=== PATIENT | male | born 1970 | race Caucasian/White ===

== ENCOUNTER 2021-10-08 14:06 | Inpatient (IN) | payer OTHER ==
[2021-10-08] MEDS ORDERED: cloNIDine HCL 0.1 MG TABLET PO PRN (15:26)
[2021-10-08] MEDS ORDERED: LOPERAMIDE HCL 2 MG CAPSULE PO PRN (15:26)
[2021-10-08] MEDS ORDERED: IBUPROFEN 400 MG TABLET (FP) PO PRN (15:26)
[2021-10-08] MEDS ORDERED: BISMUTH SUBSALICYLATE 262 MG/15 ML BTL PO PRN (15:26)
[2021-10-08] MEDS ORDERED: MAGNESIUM CITRATE 300 ML BOTTLE PO PRN (15:26)
[2021-10-08] MEDS ORDERED: NALOXONE HCL (KLOXXADO) 8 MG SPRAY NS PRN (15:26)
[2021-10-08] MEDS ORDERED: BENZOCAINE/MENTHOL (CHLORASEPTIC ) LOZENGE MM PRN (15:26)
[2021-10-08] MEDS ORDERED: MAGNESIUM HYDROX 2400MG/30ML ORAL SUSPENSION 30 ML CUP PO PRN (15:26)
[2021-10-08] MEDS ORDERED: MAG HYDROX/AL HYDROX/SIMETH 30 ML UNIT-DOSE CUP PO PRN (15:26)
[2021-10-08] MEDS ORDERED: ACETAMINOPHEN 325 MG TABLET (FP) PO PRN ×2 (15:26)
[2021-10-08] MEDS ORDERED: ONDANSETRON *ODT* 4 MG TABLET SL PRN (15:26)
[2021-10-08] MEDS ORDERED: chlordiazePOXIDE HCL 25 MG CAPSULE PO PRN (15:26)
[2021-10-08] MEDS ORDERED: NICOTINE 10 MG CARTRIDGE (INHALER) IH PRN (15:26)
[2021-10-08] MEDS ORDERED: DICYCLOMINE HCL 10 MG CAPSULE PO PRN (15:26)
[2021-10-08] MEDS ORDERED: methaDONE HCL 10 MG TABLET (FOR DETOX USE ONLY) PO ONE (15:26)
[2021-10-08 15:56] VITALS: BMI 22.8
[2021-10-08] MEDS: hydrOXYzine PAMOATE 25 MG CAPSULE (FP) PO SCH ×2 (17:53→23:39)
[2021-10-08] MEDS: PRENATAL VITAMINS W/ FOLIC ACID TABLET (FP) PO SCH (17:59)
[2021-10-08] MEDS: NICOTINE 14 MG/24 HOURS TOPICAL PATCH TD SCH (17:59)
[2021-10-08] MEDS: chlordiazePOXIDE HCL 25 MG CAPSULE PO SCH (23:39)
[2021-10-08] MEDS: THIAMINE HCL 100 MG TABLET (FP) PO SCH (23:39)
[2021-10-08] MEDS: BUDESONIDE/FORMETEROL FUMARATE 80/4.5 mcg INHALER IH SCH (23:40)
[2021-10-08] MEDS: MELATONIN 5 MG TABLETS PO SCH (23:41)
[2021-10-09] MEDS: hydrOXYzine PAMOATE 25 MG CAPSULE (FP) PO SCH ×5 (05:59→22:22)
[2021-10-09] MEDS: chlordiazePOXIDE HCL 25 MG CAPSULE PO SCH ×4 (06:00→22:22)
[2021-10-09] MEDS ORDERED: methaDONE HCL 10 MG TABLET (FOR DETOX USE ONLY) ONE (09:47)
[2021-10-09] MEDS: NICOTINE 14 MG/24 HOURS TOPICAL PATCH TD SCH (10:07)
[2021-10-09] MEDS: METHOCARBAMOL 500 MG TABLET PO PRN (10:09)
[2021-10-09] MEDS: PRENATAL VITAMINS W/ FOLIC ACID TABLET (FP) PO SCH (10:09)
[2021-10-09] MEDS: BUDESONIDE/FORMETEROL FUMARATE 80/4.5 mcg INHALER IH SCH ×2 (10:11→22:21)
[2021-10-09 10:56] LABS: HEMOGLOBIN 12.9 GM/dL (11.7-16.9); MCH 30.8 pg (25.7-33.7); MEAN CELL VOLUME 93.3 fl (80-96); MEAN PLT VOLUME 8.5 fl (7.5-11.1); PLATELET COUNT 181 10^3/uL (134-434); RBC 4.18 M/mm3 (4.00-5.60); RDW 13.4 % (11.9-15.9); WHITE BLOOD COUNT 3.9 K/mm3 (4.0-10.0)
[2021-10-09 11:15] LABS: CALCIUM 8.5 mg/dL (8.5-10.1)
[2021-10-09 11:16] LABS: ALBUMIN 2.7 g/dl (3.4-5.0); BLOOD UREA NITROGEN 11.3 mg/dL (7-18)
[2021-10-09 11:18] LABS: CREATININE 0.7 mg/dL (0.55-1.3)
[2021-10-09 11:20] LABS: TOT PROT 5.8 g/dl (6.4-8.2)
[2021-10-09 11:22] LABS: BILIRUBIN,TOTAL 1.6 mg/dL (0.2-1)
[2021-10-09] MEDS: MELATONIN 5 MG TABLETS PO SCH (22:21)
[2021-10-09] MEDS: THIAMINE HCL 100 MG TABLET (FP) PO SCH (22:22)
[2021-10-10] MEDS: chlordiazePOXIDE HCL 25 MG CAPSULE PO SCH ×4 (06:38→22:23)
[2021-10-10] MEDS: hydrOXYzine PAMOATE 25 MG CAPSULE (FP) PO SCH ×5 (06:39→22:22)
[2021-10-10] MEDS ORDERED: methaDONE HCL 10 MG TABLET (FOR DETOX USE ONLY) PO ONE (10:00)
[2021-10-10] MEDS: METHOCARBAMOL 500 MG TABLET PO PRN (10:15)
[2021-10-10] MEDS: PRENATAL VITAMINS W/ FOLIC ACID TABLET (FP) PO SCH (10:16)
[2021-10-10] MEDS: NICOTINE 14 MG/24 HOURS TOPICAL PATCH TD SCH (10:16)
[2021-10-10] MEDS: BUDESONIDE/FORMETEROL FUMARATE 80/4.5 mcg INHALER IH SCH ×2 (10:17→22:22)
[2021-10-10] MEDS: MELATONIN 5 MG TABLETS PO SCH (22:22)
[2021-10-10] MEDS: THIAMINE HCL 100 MG TABLET (FP) PO SCH (22:22)
[2021-10-11] MEDS ORDERED: chlordiazePOXIDE HCL 10 MG CAPSULE PO PRN
[2021-10-11] MEDS: METHOCARBAMOL 500 MG TABLET PO PRN (03:52)
[2021-10-11] MEDS: chlordiazePOXIDE HCL 10 MG CAPSULE PO SCH ×2 (06:41→10:26)
[2021-10-11] MEDS: hydrOXYzine PAMOATE 25 MG CAPSULE (FP) PO SCH ×2 (06:41→10:26)
[2021-10-11 08:53] VITALS: BP 121/75; PULSE 64; TEMP 97.1
[2021-10-11] MEDS: PRENATAL VITAMINS W/ FOLIC ACID TABLET (FP) PO SCH (10:25)
[2021-10-11] MEDS: NICOTINE 14 MG/24 HOURS TOPICAL PATCH TD SCH (10:25)
[2021-10-11] MEDS: BUDESONIDE/FORMETEROL FUMARATE 80/4.5 mcg INHALER IH SCH (10:26)
[2021-10-12] MEDS ORDERED: chlordiazePOXIDE HCL 10 MG CAPSULE PO SCH (05:00)
[2021-10-12] MEDS ORDERED: methaDONE HCL 10 MG TABLET (FOR DETOX USE ONLY) PO ONE (10:00)
[2021-10-13] MEDS ORDERED: chlordiazePOXIDE HCL 10 MG CAPSULE PO ONE (05:00)
== END 2021-10-11 09:06 | disposition left against medical advice (07) | DRG 770 ==
LOC: YASAS 14:06 → Y3N 16:20
PROVIDERS: ADMIT Allergy & Immunology; ATTEND Surgery
PROC: HZ2ZZZZ Detoxification Services for Substance Abuse Treatment (ICD-10-PCS; principal; 2021-10-08)
DX: F11.23 Opioid dependence with withdrawal (principal); F10.230 Alcohol dependence with withdrawal, uncomplicated; F14.20 Cocaine dependence, uncomplicated; F17.210 Nicotine dependence, cigarettes, uncomplicated; F31.9 Bipolar disorder, unspecified; F20.9 Schizophrenia, unspecified; J44.9 Chronic obstructive pulmonary disease, unspecified
CPT/HCPCS: 36415; 80053; 85027; 86780; C9803-CS; U0003; U0005

== ENCOUNTER 2022-09-12 15:41 | Inpatient (IN) | payer OTHER ==
[2022-09-12 16:05] VITALS: BMI 22.1
[2022-09-12] MEDS ORDERED: ALBUTEROL SO4 2.5/IPRATROPIUM 0.5 INH SOL 3 ML VIAL.NEB. NEB PRN (16:53)
[2022-09-12] MEDS ORDERED: ONDANSETRON *ODT* 4 MG TABLET SL PRN (16:54)
[2022-09-12] MEDS ORDERED: POLYETHYLENE GLYCOL (HEALTHYLAX) 3350 17 GM PACKET PO PRN (16:54)
[2022-09-12] MEDS ORDERED: BISMUTH SUBSALICYLATE 524 MG/30 ML PO PRN (16:54)
[2022-09-12] MEDS ORDERED: MAGNESIUM HYDROX 2400MG/30ML ORAL SUSPENSION 30 ML CUP PO PRN (16:54)
[2022-09-12] MEDS ORDERED: LOPERAMIDE HCL 2 MG CAPSULE PO PRN (16:54)
[2022-09-12] MEDS ORDERED: ACETAMINOPHEN 325 MG TABLET (FP) PO PRN ×2 (16:54)
[2022-09-12] MEDS ORDERED: MAG HYDROX/AL HYDROX/SIMETH 30 ML UNIT-DOSE CUP PO PRN (16:54)
[2022-09-12] MEDS ORDERED: NALOXONE HCL 0.4 MG/ML VIAL IM PRN (16:54)
[2022-09-12] MEDS ORDERED: IBUPROFEN 600 MG TABLET (FP) PO PRN (16:54)
[2022-09-12] MEDS ORDERED: NICOTINE POLACRILEX 2 MG GUM BUC PRN (16:54)
[2022-09-12] MEDS ORDERED: guaiFENesin 600 MG TABLET.ER (FP) PO PRN (16:54)
[2022-09-12] MEDS ORDERED: NALOXONE HCL (KLOXXADO) 8 MG SPRAY NS PRN (16:54)
[2022-09-12] MEDS ORDERED: IBUPROFEN 400 MG TABLET (FP) PO PRN (16:54)
[2022-09-12] MEDS ORDERED: BENZONATATE 200 MG CAPSULE PO PRN (16:54)
[2022-09-12] MEDS ORDERED: P-EPHED 60MG/TRIPROLIDI 2.5MG TABLET PO PRN (16:54)
[2022-09-12] MEDS ORDERED: DICYCLOMINE HCL 10 MG CAPSULE PO PRN (16:54)
[2022-09-12] MEDS ORDERED: BENZOCAINE/MENTHOL (CHLORASEPTIC ) LOZENGE MM PRN (16:54)
[2022-09-12] MEDS: hydrOXYzine PAMOATE 25 MG CAPSULE (FP) PO PRN (18:44)
[2022-09-12] MEDS: MELATONIN 5 MG TABLETS PO SCH (22:59)
[2022-09-12] MEDS: THIAMINE HCL 100 MG TABLET (FP) PO SCH (22:59)
[2022-09-13] MEDS ORDERED: ALBUTEROL SO4 HFA INHALER IH PRN (06:36)
[2022-09-13] MEDS: PRENATAL VITAMINS W/ FOLIC ACID TABLET (FP) PO SCH (10:13)
[2022-09-13] MEDS: BUDESONIDE/FORMETEROL FUMARATE 80/4.5 mcg INHALER IH SCH (10:14)
[2022-09-13 12:23] LABS: HEMATOCRIT 40.6 % (35.4-49); HEMOGLOBIN 14.1 GM/dL (11.7-16.9); MCH 32.4 pg (25.7-33.7); MCHC 34.6 g/dl (32.0-35.9); MEAN CELL VOLUME 93.6 fl (80-96); MEAN PLT VOLUME 8.4 fl (7.5-11.1); PLATELET COUNT 169 10^3/uL (134-434); RBC 4.33 M/mm3 (4.00-5.60); RDW 13.6 % (11.9-15.9); WHITE BLOOD COUNT 5.3 K/mm3 (4.0-10.0)
[2022-09-13 12:27] LABS: ALBUMIN 2.8 g/dl (3.4-5.0)
[2022-09-13 12:28] LABS: BLOOD UREA NITROGEN 19.6 mg/dL (7-18)
[2022-09-13 12:30] LABS: CALCIUM 8.7 mg/dL (8.5-10.1)
[2022-09-13 12:31] LABS: CREATININE 0.7 mg/dL (0.55-1.3)
[2022-09-13 12:32] LABS: BILIRUBIN,TOTAL 0.2 mg/dL (0.2-1); TOT PROT 5.9 g/dl (6.4-8.2)
[2022-09-13] MEDS: hydrOXYzine PAMOATE 25 MG CAPSULE (FP) PO PRN (17:33)
[2022-09-13] MEDS: THIAMINE HCL 100 MG TABLET (FP) PO SCH (22:17)
[2022-09-13] MEDS: MELATONIN 5 MG TABLETS PO SCH (22:18)
[2022-09-14] MEDS ORDERED: methaDONE HCL 10 MG TABLET (FOR DETOX USE ONLY) PO ONE (09:17)
[2022-09-14] MEDS ORDERED: cloNIDine HCL 0.1 MG TABLET PO PRN (09:17)
[2022-09-14] MEDS ORDERED: diazePAM 5 MG TABLET PO PRN (09:18)
[2022-09-14] MEDS: PRENATAL VITAMINS W/ FOLIC ACID TABLET (FP) PO SCH (10:13)
[2022-09-14] MEDS: BUDESONIDE/FORMETEROL FUMARATE 80/4.5 mcg INHALER IH SCH (10:15)
[2022-09-14] MEDS: diazePAM 5 MG TABLET PO SCH ×3 (11:15→22:11)
[2022-09-14 21:11] VITALS: RESP 16
[2022-09-14] MEDS: THIAMINE HCL 100 MG TABLET (FP) PO SCH (22:10)
[2022-09-14] MEDS: MELATONIN 5 MG TABLETS PO SCH (22:10)
[2022-09-14] MEDS: hydrOXYzine PAMOATE 25 MG CAPSULE (FP) PO PRN (22:10)
[2022-09-15] MEDS: diazePAM 5 MG TABLET PO SCH (05:39)
[2022-09-15 06:36] VITALS: BP 140/89; PULSE 66; TEMP 97.7
[2022-09-16] MEDS ORDERED: diazePAM 5 MG TABLET PO SCH (06:00)
[2022-09-16] MEDS ORDERED: methaDONE HCL 10 MG TABLET (FOR DETOX USE ONLY) PO ONE (10:00)
[2022-09-17] MEDS ORDERED: diazePAM 5 MG TABLET PO SCH (06:00)
[2022-09-18] MEDS ORDERED: diazePAM 5 MG TABLET PO ONE (06:00)
[2022-09-18] MEDS ORDERED: methaDONE HCL 10 MG TABLET (FOR DETOX USE ONLY) PO ONE (10:00)
== END 2022-09-15 09:14 | disposition left against medical advice (07) | DRG 770 ==
LOC: YASAS 15:41 → UNDOADMIN 18:24 → Y3N 18:24 → UNDODISIN 09-15 09:14
PROVIDERS: ADMIT Allergy & Immunology; ATTEND Surgery
PROC: HZ2ZZZZ Detoxification Services for Substance Abuse Treatment (ICD-10-PCS; principal; 2022-09-12)
DX: F11.23 Opioid dependence with withdrawal (principal); F10.230 Alcohol dependence with withdrawal, uncomplicated; F14.20 Cocaine dependence, uncomplicated; F17.210 Nicotine dependence, cigarettes, uncomplicated; F31.9 Bipolar disorder, unspecified; F19.24 Other psychoactive substance dependence with psychoactive substance-induced mood disorder; J45.20 Mild intermittent asthma, uncomplicated; Z86.11 Personal history of tuberculosis; Z56.0 Unemployment, unspecified; Z59.00 Homelessness unspecified; Z91.199 Patient's noncompliance with other medical treatment and regimen due to unspecified reason
CPT/HCPCS: 36415; 80053; 85027; 86780; 87811; C9803-CS; U0003; U0005

== ENCOUNTER 2022-10-07 17:11 | Inpatient (IN) | payer OTHER ==
[2022-10-07 18:01] VITALS: BMI 22.3
[2022-10-07] MEDS ORDERED: ACETAMINOPHEN 325 MG TABLET (FP) PO PRN (19:47)
[2022-10-07] MEDS ORDERED: BENZOCAINE/MENTHOL (CHLORASEPTIC ) LOZENGE MM PRN (19:47)
[2022-10-07] MEDS ORDERED: DICYCLOMINE HCL 10 MG CAPSULE PO PRN (19:47)
[2022-10-07] MEDS ORDERED: POLYETHYLENE GLYCOL (HEALTHYLAX) 3350 17 GM PACKET PO PRN (19:47)
[2022-10-07] MEDS ORDERED: guaiFENesin 600 MG TABLET.ER (FP) PO PRN (19:47)
[2022-10-07] MEDS ORDERED: BISMUTH SUBSALICYLATE 524 MG/30 ML PO PRN (19:47)
[2022-10-07] MEDS ORDERED: ONDANSETRON *ODT* 4 MG TABLET SL PRN (19:47)
[2022-10-07] MEDS ORDERED: NALOXONE HCL 0.4 MG/ML VIAL IM PRN (19:47)
[2022-10-07] MEDS ORDERED: BENZONATATE 200 MG CAPSULE PO PRN (19:47)
[2022-10-07] MEDS ORDERED: IBUPROFEN 400 MG TABLET (FP) PO PRN (19:47)
[2022-10-07] MEDS ORDERED: MAGNESIUM HYDROX 2400MG/30ML ORAL SUSPENSION 30 ML CUP PO PRN (19:47)
[2022-10-07] MEDS ORDERED: NALOXONE HCL (KLOXXADO) 8 MG SPRAY NS PRN (19:47)
[2022-10-07] MEDS ORDERED: MAG HYDROX/AL HYDROX/SIMETH 30 ML UNIT-DOSE CUP PO PRN (19:47)
[2022-10-07] MEDS ORDERED: LOPERAMIDE HCL 2 MG CAPSULE PO PRN (19:47)
[2022-10-07] MEDS ORDERED: NICOTINE POLACRILEX 2 MG GUM BUC PRN (19:47)
[2022-10-07] MEDS ORDERED: ALBUTEROL SO4 HFA INHALER IH PRN (19:50)
[2022-10-07] MEDS: THIAMINE HCL 100 MG TABLET (FP) PO SCH (23:31)
[2022-10-07] MEDS: MELATONIN 5 MG TABLETS PO SCH (23:32)
[2022-10-08] MEDS: IBUPROFEN 600 MG TABLET (FP) PO PRN ×2 (10:21→22:16)
[2022-10-08] MEDS: hydrOXYzine PAMOATE 25 MG CAPSULE (FP) PO PRN ×2 (10:21→22:17)
[2022-10-08] MEDS: PRENATAL VITAMINS W/ FOLIC ACID TABLET (FP) PO SCH (10:21)
[2022-10-08] MEDS: METHOCARBAMOL 500 MG TABLET PO PRN ×2 (10:21→22:17)
[2022-10-08] MEDS: BUDESONIDE/FORMETEROL FUMARATE 80/4.5 mcg INHALER IH SCH ×2 (10:22→22:17)
[2022-10-08] MEDS: NICOTINE 14 MG/24 HOURS TOPICAL PATCH TD SCH (10:22)
[2022-10-08] MEDS ORDERED: methaDONE HCL 10 MG TABLET (FOR DETOX USE ONLY) PO ONE (12:18)
[2022-10-08] MEDS ORDERED: diazePAM 5 MG TABLET PO PRN (12:18)
[2022-10-08 12:32] LABS: HEMATOCRIT 40.6 % (35.4-49); HEMOGLOBIN 14.1 GM/dL (11.7-16.9); MCHC 34.8 g/dl (32.0-35.9); MEAN CELL VOLUME 92.1 fl (80-96); MEAN PLT VOLUME 8.9 fl (7.5-11.1); PLATELET COUNT 189 10^3/uL (134-434); RBC 4.41 M/mm3 (4.00-5.60); RDW 13.4 % (11.9-15.9); WHITE BLOOD COUNT 5.2 K/mm3 (4.0-10.0)
[2022-10-08] MEDS: cloNIDine HCL 0.1 MG TABLET PO PRN (12:49)
[2022-10-08 13:15] LABS: POTASSIUM 4.2 mmol/L (3.5-5.1)
[2022-10-08 13:22] LABS: CALCIUM 8.6 mg/dL (8.5-10.1)
[2022-10-08 13:23] LABS: ALBUMIN 2.8 g/dl (3.4-5.0); BLOOD UREA NITROGEN 14.5 mg/dL (7-18)
[2022-10-08 13:26] LABS: CREATININE 0.7 mg/dL (0.55-1.3)
[2022-10-08 13:28] LABS: BILIRUBIN,TOTAL 0.4 mg/dL (0.2-1); TOT PROT 6.2 g/dl (6.4-8.2)
[2022-10-08] MEDS: diazePAM 5 MG TABLET PO SCH ×2 (17:49→22:16)
[2022-10-08] MEDS: AMOX TR/POT CLAV 875MG/125MG TABLETS (FP) PO SCH (17:50)
[2022-10-08] MEDS: MELATONIN 5 MG TABLETS PO SCH (22:13)
[2022-10-08] MEDS: THIAMINE HCL 100 MG TABLET (FP) PO SCH (22:13)
[2022-10-09] MEDS: cloNIDine HCL 0.1 MG TABLET PO PRN (00:01)
[2022-10-09] MEDS: diazePAM 5 MG TABLET PO SCH ×4 (05:43→22:08)
[2022-10-09] MEDS: AMOX TR/POT CLAV 875MG/125MG TABLETS (FP) PO SCH ×2 (07:02→17:22)
[2022-10-09] MEDS: BUDESONIDE/FORMETEROL FUMARATE 80/4.5 mcg INHALER IH SCH ×2 (10:51→22:09)
[2022-10-09] MEDS: PRENATAL VITAMINS W/ FOLIC ACID TABLET (FP) PO SCH (10:52)
[2022-10-09] MEDS: hydrOXYzine PAMOATE 25 MG CAPSULE (FP) PO PRN ×2 (10:52→22:07)
[2022-10-09] MEDS: NICOTINE 14 MG/24 HOURS TOPICAL PATCH TD SCH (10:54)
[2022-10-09] MEDS: METHOCARBAMOL 500 MG TABLET PO PRN (22:06)
[2022-10-09] MEDS: MELATONIN 5 MG TABLETS PO SCH (22:07)
[2022-10-09] MEDS: THIAMINE HCL 100 MG TABLET (FP) PO SCH (22:07)
[2022-10-10] MEDS ORDERED: diazePAM 5 MG TABLET PO SCH (06:00)
[2022-10-10] MEDS: AMOX TR/POT CLAV 875MG/125MG TABLETS (FP) PO SCH (07:22)
[2022-10-10 09:33] VITALS: BP 131/94; PULSE 63; RESP 18; TEMP 97.2
[2022-10-10] MEDS ORDERED: methaDONE HCL 10 MG TABLET (FOR DETOX USE ONLY) PO ONE (10:00)
[2022-10-10] MEDS: NICOTINE 14 MG/24 HOURS TOPICAL PATCH TD SCH (11:00)
[2022-10-10] MEDS: BUDESONIDE/FORMETEROL FUMARATE 80/4.5 mcg INHALER IH SCH (11:01)
[2022-10-10] MEDS: PRENATAL VITAMINS W/ FOLIC ACID TABLET (FP) PO SCH (11:01)
[2022-10-11] MEDS ORDERED: diazePAM 5 MG TABLET PO SCH (06:00)
[2022-10-12] MEDS ORDERED: diazePAM 5 MG TABLET PO ONE (06:00)
[2022-10-12] MEDS ORDERED: methaDONE HCL 10 MG TABLET (FOR DETOX USE ONLY) PO ONE (10:00)
== END 2022-10-10 11:33 | disposition left against medical advice (07) | DRG 770 ==
LOC: YASAS 17:11 → Y6N 22:34
PROVIDERS: ADMIT Allergy & Immunology; ATTEND Surgery
PROC: HZ2ZZZZ Detoxification Services for Substance Abuse Treatment (ICD-10-PCS; principal; 2022-10-07)
DX: F11.23 Opioid dependence with withdrawal (principal); F10.230 Alcohol dependence with withdrawal, uncomplicated; F14.20 Cocaine dependence, uncomplicated; F17.210 Nicotine dependence, cigarettes, uncomplicated; F31.9 Bipolar disorder, unspecified; F19.24 Other psychoactive substance dependence with psychoactive substance-induced mood disorder; J44.9 Chronic obstructive pulmonary disease, unspecified; J40 Bronchitis, not specified as acute or chronic; Z59.00 Homelessness unspecified
CPT/HCPCS: 36415; 71046-TC-FY; 80053; 85027; 86780; C9803-CS; U0003; U0005